=== PATIENT | male | born 1985 | race Caucasian/White ===

== ENCOUNTER 2018-06-23 02:19 | Emergency (ER) | payer SELFPAY ==
[2018-06-23] MEDS: IBUPROFEN 800 MG TAB PO (03:13)
== END 2018-06-23 04:21 | disposition home or self-care (01) ==
LOC: FTE 02:19
DX: S00.83XA Contusion of other part of head, initial encounter (principal); X58.XXXA Exposure to other specified factors, initial encounter; Y92.9 Unspecified place or not applicable
CPT/HCPCS: 70450; 70486; 99284-25